=== PATIENT | male | born 1935 | race Caucasian/White ===

== ENCOUNTER 2019-10-11 08:20 | Emergency (ER) | payer MEDICARE, SELFPAY ==
[~2019-10-11] VITALS: Ht 172.7 cm; Wt 68.0 kg
[2019-10-11 08:36] VITALS: BP_SYST 151
[2019-10-11 09:02] LABS: BASOPHILS # (AUTO) 0.1 K/uL (0.0-0.2); BASOPHILS % (AUTO) 0.5 % (0.0-2.0); EOSINOPHILS % (AUTO) 0.2 % (0.0-4.0); HEMATOCRIT 39.6 % (36-54); HEMOGLOBIN 12.5 g/dL (14.0-18.0); LYMPHOCYTES # (AUTO) 2.5 K/uL (1.0-5.5); LYMPHOCYTES % (AUTO) 11.6 % (20.5-51.5); MEAN CORPUSCULAR HEMOGLOBIN 28 pg (27-31); MEAN CORPUSCULAR HGB CONC 32 % (32-36); MEAN CORPUSCULAR VOLUME 88 fL (79.0-98.0); MONOCYTES # (AUTO) 1.6 K/uL (0.0-1.0); MONOCYTES % (AUTO) 7.4 % (1.7-9.3); NEUTROPHILS % (AUTO) 80.3 % (40.0-70.0); PLATELET COUNT (AUTO) 243 K/uL (130-430); RED BLOOD CELL COUNT(AUTO) 4.51 MIL/uL (4.2-6.2); RED CELL DISTRIBUTION WIDTH 19.7 % (9.0-15.0); WHITE BLOOD COUNT (AUTO) 21.2 K/uL (4.8-10.8)
[2019-10-11 09:11] LABS: BILIRUBIN,URINE NEGATIVE (NEGATIVE); BLOOD, URINE 3+ (NEGATIVE); CLARITY/URINE SL CLOUDY (CLEAR); COLOR,URINE YELLOW (YELLOW); GLUCOSE,URINE NEGATIVE (NEGATIVE); KETONES,URINE NEGATIVE (NEGATIVE); LEUKOCYTE ESTERASE ,URINE 1+ (NEGATIVE); NITRITE, URINE POSITIVE (NEGATIVE); PROTEIN URINE 2+ (NEGATIVE); UROBILINOGEN,URINE 0.2 (0.2-1.0)
[2019-10-11 09:14] LABS: ANION GAP 13 (5-15); CALCIUM 8.9 mg/dL (8.4-11.0); CHLORIDE 99 mmol/L (98-107); CREATININE 0.81 mg/dL (0.55-1.30); GLUCOSE 114 mg/dL (70-99); SODIUM SERUM 135 mmol/L (136-145); UREA NITROGEN, BLOOD 10 mg/dL (8-21)
[2019-10-11 09:20] LABS: ALANINE AMINOTRANSFERASE 14 U/L (12-78); ALBUMIN 2.8 g/dL (3.4-4.8); ASPARTATE AMINOTRANSFERASE 43 U/L (10-37); BACTERIA,URINE MODERATE /HPF (None Seen); MUCUS,URINE 1+ /LPF (None Seen); TOTAL BILIRUBIN 0.7 mg/dL (0.0-1.0)
[2019-10-11 09:27] LABS: POTASSIUM 3.8 mmol/L (3.5-5.1)
[2019-10-11] MEDS ORDERED: PIPERACILLIN/TAZO 3.375 GM in NS 50 ML IV ONE (09:30)
[2019-10-11] MEDS ORDERED: PIPERACILLIN/TAZOBACTAM 3.375 GM/VIAL (ZOSYN) IV ONE (09:58)
[2019-10-11] MEDS ORDERED: NACL 0.9% 1,000 ML IV ONE (10:00)
[2019-10-11 12:44] VITALS: BP_SYST 139
== END 2019-10-11 12:37 | disposition short-term general hospital (02) ==
LOC: SED 08:20
DX: N30.00 Acute cystitis without hematuria (principal); A41.9 Sepsis, unspecified organism; R53.1 Weakness
CPT/HCPCS: 36415; 71045; 80053; 81000; 82962; 85025; 87086; 87426; 93005; 96365; 99291; J7030; J2543

== ENCOUNTER 2020-07-05 23:54 | Emergency (ER) | payer MEDICARE, SELFPAY ==
[~2020-07-05] VITALS: Ht 172.7 cm; Wt 77.1 kg
[2020-07-06 00:01] VITALS: BP_SYST 119
[2020-07-06] MEDS ORDERED: DEXTROSE 50% JECT 50 ML DISP.SYRIN ONE ×2 (00:13→04:54)
[2020-07-06] MEDS ORDERED: FURO-150 PO (00:22)
[2020-07-06] MEDS ORDERED: GLU500 PO (00:22)
[2020-07-06] MEDS ORDERED: GLIP5TAB26 PO (00:22)
[2020-07-06] MEDS ORDERED: CEFPODOXIME PO (00:22)
[2020-07-06] MEDS ORDERED: ENZA40CA PO (00:22)
[2020-07-06 00:30] LABS: HEMOGLOBIN 7.7 g/dL (14.0-18.0)
[2020-07-06] MEDS ORDERED: D5/0.45 NS 500 ML IV ONE (00:30)
[2020-07-06 00:33] LABS: ANION GAP 15 (5-15); CALCIUM 7.2 mg/dL (8.4-11.0); CHLORIDE 107 mmol/L (98-107); CREATININE 1.04 mg/dL (0.55-1.30); POTASSIUM 4.6 mmol/L (3.5-5.1); SODIUM SERUM 143 mmol/L (136-145); UREA NITROGEN, BLOOD 20 mg/dL (8-21)
[2020-07-06 00:34] LABS: BASOPHILS # (AUTO) 0.1 K/uL (0.0-0.2); BASOPHILS % (AUTO) 0.5 % (0.0-2.0); EOSINOPHILS # (AUTO) 0.2 K/uL (0.0-0.4); EOSINOPHILS % (AUTO) 1.9 % (0.0-4.0); HEMATOCRIT 24.8 % (36-54); LYMPHOCYTES # (AUTO) 1.2 K/uL (1.0-5.5); LYMPHOCYTES % (AUTO) 9.6 % (20.5-51.5); MEAN CORPUSCULAR HEMOGLOBIN 24 pg (27-31); MEAN CORPUSCULAR HGB CONC 31 % (32-36); MEAN CORPUSCULAR VOLUME 77 fL (79.0-98.0); MONOCYTES # (AUTO) 1.1 K/uL (0.0-1.0); MONOCYTES % (AUTO) 8.5 % (1.7-9.3); NEUTROPHILS # (AUTO) 10.3 K/uL (1.8-7.7); NEUTROPHILS % (AUTO) 79.5 % (40.0-70.0); PLATELET COUNT (AUTO) 646 K/uL (130-430); RED BLOOD CELL COUNT(AUTO) 3.21 MIL/uL (4.2-6.2); RED CELL DISTRIBUTION WIDTH 19.6 % (9.0-15.0); WHITE BLOOD COUNT (AUTO) 12.9 K/uL (4.8-10.8)
[2020-07-06 00:41] LABS: ALANINE AMINOTRANSFERASE 9 U/L (12-78); ALBUMIN 1.3 g/dL (3.4-4.8); ASPARTATE AMINOTRANSFERASE 165 U/L (10-37); TOTAL BILIRUBIN 0.6 mg/dL (0.0-1.0)
[2020-07-06 00:43] LABS: GLUCOSE 44 mg/dL (70-99)
[2020-07-06] MEDS ORDERED: DEXTROSE 50% JECT 50 ML DISP.SYRIN IVP ONE ×3 (00:45→04:50)
[2020-07-06 03:34] LABS: BILIRUBIN,URINE 1+ (NEGATIVE); BLOOD, URINE 3+ (NEGATIVE); CLARITY/URINE SL CLOUDY (CLEAR); COLOR,URINE ORANGE (YELLOW); GLUCOSE,URINE NEGATIVE (NEGATIVE); KETONES,URINE TRACE (NEGATIVE); LEUKOCYTE ESTERASE ,URINE 2+ (NEGATIVE); NITRITE, URINE NEGATIVE (NEGATIVE); PROTEIN URINE 3+ (NEGATIVE); UROBILINOGEN,URINE 0.2 (0.2-1.0)
[2020-07-06 03:38] LABS: BACTERIA,URINE FEW /HPF (None Seen); RBC,URINE >100 /HPF (0-3)
[2020-07-06] MEDS ORDERED: ACETAMINOPHEN 325 MG TABLET ONE (04:22)
[2020-07-06] MEDS ORDERED: ACETAMINOPHEN 500 MG TABLET ONE (04:24)
[2020-07-06] MEDS ORDERED: ACETAMINOPHEN 500 MG TABLET PO ONE (04:30)
[2020-07-06 05:02] VITALS: BP_SYST 125
== END 2020-07-06 04:56 | disposition short-term general hospital (02) ==
LOC: SED 23:54
DX: E11.649 Type 2 diabetes mellitus with hypoglycemia without coma (principal); Z79.84 Long term (current) use of oral hypoglycemic drugs; Z79.899 Other long term (current) drug therapy
CPT/HCPCS: 36415; 71045; 80053; 81000; 82962; 83880; 84484; 85025; 87086; 93005; 96365; 96376; 99291; 99292